=== PATIENT | female | born 1965 | race Two or more races ===

== ENCOUNTER 2023-12-28 13:43 | Emergency (ER) | payer OTHER ==
[~2023-12-28] VITALS: Ht 142.2 cm; Wt 40.8 kg
[2023-12-28] MEDS ORDERED: XANAX0.25 MG PO (14:07)
[2023-12-28] MEDS ORDERED: ACETAMINOPHEN 500 MG GEL..CAP PO STA (15:23)
== END 2023-12-28 15:44 | disposition home or self-care (01) ==
LOC: ER 13:45
DX: R51.9 Headache, unspecified (principal)